=== PATIENT | male | born 1970 | race Two or more races ===

== ENCOUNTER 2022-02-09 11:08 | Emergency (ER) | payer MEDICAID, OTHER ==
[~2022-02-09] VITALS: Ht 177.8 cm; Wt 96.0 kg
[2022-02-09 13:33] VITALS: BP 136/87
== END 2022-02-09 14:29 | disposition home or self-care (01) ==
LOC: ER 11:08
DX: M75.21 Bicipital tendinitis, right shoulder (principal)
CPT/HCPCS: 73080; 93971